=== PATIENT | female | born 1955 | race Caucasian/White ===

== ENCOUNTER 2018-03-18 00:41 | Outpatient (CLI) | payer BC, SELFPAY ==
--- NOTE | 2018-03-18 17:20 | DI.MAMMO_ITS ---
SYMPTOMS/DIAGNOSIS: SCREENING, Z12.31 MAMMOGRAM: Mammograms were interpreted according to the usual protocol including computer analysis with CAD system, tomosynthesis and C view imaging. The breasts are heterogeneously dense. No dominant mass or clumped microcalcification is identified in either breast. Current examination is compared with the previous examinations including March 2017 and there is a question of increased prominence of a focal area of asymmetric density projected in the central and medial portion of the right breast on CC view. Additional mammographic views of the right breast are requested to include CC spot compression view of the right breast. CONCLUSION: Additional mammographic views of the right breast requested as described above. Breast ultrasound may be indicated as well depending on the results of the additional mammographic views. Category 0, breast density category C. MQSA ASSESSMENT OF FINDINGS: Incomplete: Needs additional imaging evaluation. Category 0. Patient will receive a letter notifying them of these results. Bi-RADS category C. The breasts are heterogeneously dense, which may obscure small masses.
== END 2018-03-18 01:01 ==
PROVIDERS: PCP Family Medicine; Visit Provider Nurse Practitioner Family
DX: Z12.31 Encounter for screening mammogram for malignant neoplasm of breast (principal); R92.8 Other abnormal and inconclusive findings on diagnostic imaging of breast
CPT/HCPCS: 77063; 77067

== ENCOUNTER 2018-03-31 00:43 | Outpatient (CLI) | payer BC, SELFPAY ==
--- NOTE | 2018-03-31 14:45 | DI.COMBO_ITS ---
SYMPTOM/DIAGNOSIS: F/U MAMMO. ASYMMETRIC DENSITY RT BREAST ADDITIONAL MAMMOGRAPHIC VIEWS RIGHT BREAST, RT BREAST ULTRASOUND: 03/31 Additional images are interpreted according to the usual protocol including tomosynthesis and 2D imaging. Additional mammographic views of the right breast and right breast ultrasound are interpreted in conjunction. These examinations were obtained to evaluate a questionable area of asymmetric density seen in the right breast on recent examination in the medial portion of the breast on CC view. Additional mammographic views failed to show a discrete mass. Breast ultrasound shows no evidence of a mass or cyst. CONCLUSION: No specific evidence of malignancy at this time. Follow up unilateral right breast mammogram recommended in six months. Category 3, breast density category c. MQSA ASSESSMENT OF FINDINGS: Probably benign. Six month follow-up recommended. Category 3. Patient will receive a letter notifying them of these results. Bi-RADS category C. The breasts are heterogeneously dense, which may obscure small masses.
== END 2018-03-31 01:03 ==
PROVIDERS: PCP Family Medicine; Visit Provider Nurse Practitioner Family
DX: Z12.31 Encounter for screening mammogram for malignant neoplasm of breast (principal); R92.8 Other abnormal and inconclusive findings on diagnostic imaging of breast; N64.89 Other specified disorders of breast
CPT/HCPCS: 76642; 77063; 77067

== ENCOUNTER 2018-06-25 11:05 | Outpatient (CLI) | payer BC, SELFPAY ==
[2018-06-25 13:23] LABS: TSH 3.57 uIU/mL (0.358-3.74)
== END 2018-06-25 11:25 ==
PROVIDERS: PCP Family Medicine; Visit Provider Family Medicine
DX: R94.6 Abnormal results of thyroid function studies (principal)
CPT/HCPCS: 36415; 84443

== ENCOUNTER 2018-10-13 00:55 | Outpatient (CLI) | payer BC, SELFPAY ==
--- NOTE | 2018-10-13 11:21 | DI.MAMMO_ITS ---
SYMPTOM/DIAGNOSIS: 6 MO F/U, F/U ABNL MAMMO, R02.8 RIGHT MAMMOGRAM: Mammograms were interpreted according to the usual protocol including computer analysis with CAD system, tomosynthesis and C view imaging. Today's mammogram was obtained to re-evaluate questionable area of asymmetric density seen in posteromedial portion of the right breast on CC view of previous mammogram of 03/2018. The findings are less prominent on the current examination. No new mass or clumped microcalcification is seen. CONCLUSION: No specific evidence of malignancy at this time. I would suggest that routine screening examinations resume with a bilateral mammogram in 6 months. Category 3. Breast density, Category C. MQSA ASSESSMENT OF FINDINGS: Probably benign. Six month follow-up recommended. Category 3. Patient will receive a letter notifying them of these results. Bi-RADS category C. The breasts are heterogeneously dense, which may obscure small masses.
== END 2018-10-13 01:15 ==
PROVIDERS: PCP Family Medicine; Visit Provider Nurse Practitioner Family
DX: Z12.31 Encounter for screening mammogram for malignant neoplasm of breast (principal); R92.8 Other abnormal and inconclusive findings on diagnostic imaging of breast; N64.59 Other signs and symptoms in breast
CPT/HCPCS: 77061; 77065; G0279

== ENCOUNTER 2019-01-18 22:58 | Emergency (ER) | payer BC, SELFPAY ==
--- NOTE | 2019-01-18 23:04 | ED.GENADUL_ITS ---
Discharge Plan Disposition Patient Disposition: HOME Condition: Stable Discharge Details Chief Complaint: EyeProblem Clinical Impression: Partial retinal detachment Primary Care Provider: Kayce Billingsley ED Provider: Nabila Nielson Home Meds and New Rx's Prescriptions: Continued buspirone 30 mg tablet 15 mg PO BID PRN (Reason: anxiety) Qty: 60 RF: 3 valacyclovir 1 gram tablet 2,000 mg PO DAILY Qty: 90 RF: 4 Linzess 72 mcg capsule 72 mcg PO DAILY Qty: 90 RF: 3 lorazepam [Ativan] 2 mg tablet 2 mg PO HS Qty: 30 RF: 3 duloxetine [Cymbalta] 60 mg capsule,delayed release(DR/EC) 60 mg PO BID Qty: 180 RF: 4 polyethylene glycol 3350 [Miralax] 17 gram powder in packet 17 gm PO .Q48-72H RF: 0 Discharge Instructions Instructions: Retinal Detachment (GEN) Additional Instructions: Your ultrasound and history are suggestive of a retinal detachement. I spoke with Dr. Viera at [facility] who would like for you to be evaluated in their clinic tomorrow. Tomorrow morning please call [phone]. If you develop fevers/chills, pain, redness of the eye or other new/worsening symptoms please seek care urgently once again. Please do not eat anything until evaluated later today. Referrals: Kayce Billingsley MD [Primary Care Provider] - SALOME العراقي [ NON-[facility] STAFF PHYSICIAN] - Medical Decision Making Patient is 63-year-old female presents today with chief complaint of diminished vision in the left eye. She reports at 1400 she had a cloud move across the lateral aspect of her vision towards the medial point. States that since then she has had a wong film over the left eye. No trauma. No pain in the eye. Eyes not injected. Has not had issues with retinal detachment or retinal issues historically. No headache. No neurologic deficit. Patient has had cataract surgery on the side. She did contact her salon stylist who recommended she be evaluated in the emergency department. My exam, patient appears very anxious. Noted to have a mild afferent pupillary reflex delay. Patient's visual acuity on the right is 20/20, patient's visual acuity is 0 on affected eye. Bedside ultrasound was performed by Dr. Locke to evaluate for possible retinal detachment. We are able to appreciate a retinal abnormality with bunching up of the retina concerning for partial retinal detachment. Consult with at [facility] ophthalmology who advised patient should be evaluated tomorrow by retinal specialist. I do not feel the patient needed evaluation tonight. Patient is very anxious and is requesting anxiolytic. She typically takes 2 mg of Ativan prior to bed every night. Prior to my consultation, she was given 1 mg, is now requesting a second milligram. Advised to not take another dose this evening. She is given strict return precautions. She will follow-up with doctors begins tomorrow at [facility] to schedule appointment. He did advise that she remain n.p.o. after midnight, relate this to the patient and discussed that this is an prep for possible surgical intervention. Patients intraocular pressure 12. Information given on retinal detachement. All of her questions and concerns were addressed, she is in agreeemtn with this plan. HPI General Mode of arrival: ambulatory . Date/Time Provider Initiated Documentation: 01/18/19 23:03 . Limitations to Documentation: no limitations . Information obtained by: patient and RN notes reviewed . HPI Narrative: Patient is a 63 year old female presenting today with c/c of left eye diminished vision. Reports that at 1400, while in [place], she had a sudden, atraumatic, loss of vision from outward in. States that she saw long floaters and now is seeing a wong film over her entire left eye field of vision. Denies pain, weakness, trauma, DAVIS, fevers/chills. Has had cataract surgery on this side. Related Data Home Medications Medication Instructions Recorded Confirmed linaclotide 72 mcg capsule 72 mcg PO DAILY #90 cap 04/14/18 12/15/18 lorazepam 2 mg tablet 2 mg PO HS #30 tab-cap 10/13/18 12/15/18 duloxetine 60 mg capsule,delayed 60 mg PO BID #180 tab-cap 10/27/18 12/15/18 release buspirone 30 mg tablet 15 mg PO BID PRN #60 tab 12/15/18 polyethylene glycol 3350 17 gram 17 gm PO .Q48-72H gm 12/15/18 12/15/18 oral powder packet valacyclovir 1 gram tablet 2,000 mg PO DAILY #90 tab 12/15/18 Previous Rx's Medication Instructions Recorded linaclotide 72 mcg capsule 72 mcg PO DAILY #90 cap 04/14/18 lorazepam 2 mg tablet 2 mg PO HS #30 tab-cap 10/13/18 duloxetine 60 mg capsule,delayed 60 mg PO BID #180 tab-cap 10/27/18 release buspirone 30 mg tablet 15 mg PO BID PRN #60 tab 12/15/18 valacyclovir 1 gram tablet 2,000 mg PO DAILY #90 tab 12/15/18 Allergies Allergy/AdvReac Type Severity Reaction Status Date / Time bupropion AdvReac Intermediate MAKES ME Unverified 12/15/18 08:45 CRAZY zolpidem tartrate AdvReac Intermediate HALLUCINATA Unverified 12/15/18 08:45 [From Rosa] TION Review of Systems Constitutional Reports as per HPI, Denies chills, Denies fatigue, Denies fever(s) and Denies headache(s) Eyes Reports as per HPI, Reports change in vision, Denies diplopia, Denies eye discharge, Denies dry eyes, Reports floaters, Denies irritation, Reports loss of vision, Denies eye pain, Denies seeing flashes, Denies photophobia and Denies spots in vision ENT Denies headache(s) Cardiovascular Reports as per HPI, Denies chest pain and Denies lightheadedness Respiratory Denies cough Integumentary/Breasts Reports as per HPI, Denies rash, Denies skin pain and Denies skin swelling Neurologic Denies headache(s), Reports loss of vision and Denies radicular pain Endocrine Denies fatigue [facility] Medical History Anxiety Depression Sleep disorder Surgical History Correction, [place] Open Carpal Tunnel release (~2008) Family History Mother Vulvar cancer Social History Smoking/Tobacco Use Status: Never Drug use: Never Do you feel safe at home: Yes Do you feel safe in your relationship?: Yes Exam Const General: cooperative, healthy appearing, comfortable, no acute distress, well developed and well groomed Nutritional Appearance: average body habitus and well nourished Orientation: alert, awake and oriented x3 HENMT Head: normal to inspection, normocephalic and atraumatic Ears: hearing grossly normal bilaterally and external ears normal General nose exam: external nose normal and nares normal Face and sinus: normal facial exam and face symmetric Mouth: oral mucosae normal, lip normal and moist mucous membranes Eyes General: appearance normal, both eyes and all related structures Alignment and Position: alignment normal Periorbital: periorbital findings normal Eyelids: eyelids normal Conjunctivae: conjunctivae normal Sclera: sclerae normal Cornea: corneas normal Pupils: other (patient is noted to have a slight afferent pupillary defect) EOM: EOM intact bilaterally Resp Effort & Inspection: normal respiratory effort, able to speak in complete sentences and no respiratory distress Auscultation: clear to auscultation bilaterally Cardio Rate: regular rate Rhythm: regular rhythm Heart Sounds: S1 normal and S2 normal Skin General skin exam: no rashes or lesions noted Neuro General: alert, awake and oriented x3 Cranial Nerves: CN's II-XI intact bilaterally Cognition: normal cognition Speech: speech normal Gait: normal gait Psych Appearance: grossly normal and well kempt Mental Status: mental status grossly normal Speech and Movement: speech and movement normal
[2019-01-18 23:48] VITALS: BP 115/76; PULSE 65; RESP 16; TEMP 36.6; O2SAT 100
--- NOTE | 2019-01-19 08:32 | NUR.NOTE ---
Addendum entered by Sara Cristobal 01/19/19 08:32: Spoke with Tiffanie. Original Note: Nursing Note: At the request of [facility] the MD note was faxed for her appt. @ 10:30am today. Sara Cristobal.
== END 2019-01-19 01:10 | disposition home or self-care (01) ==
PROVIDERS: Emergency Provider Physician Assistant; PCP Family Medicine
DX: H33.8 Other retinal detachments (principal)
CPT/HCPCS: 99284

== ENCOUNTER 2019-03-06 09:09 | Outpatient (CLI) | payer BC, SELFPAY ==
[2019-03-06 18:50] LABS: Hemoglobin A1C 5.6 % (4.5-6.2)
== END 2019-03-06 09:29 ==
LOC: LOS 09:09 → LBO 13:17
PROVIDERS: PCP Family Medicine; Visit Provider Nurse Practitioner
DX: Z13.1 Encounter for screening for diabetes mellitus (principal)
CPT/HCPCS: 36415; 83036

== ENCOUNTER 2019-03-12 15:18 | Outpatient (REF) | payer BC, SELFPAY ==
--- NOTE | 2019-03-12 13:00 | PAPFT_PTH ---
PATIENT: Elisha Celestin LOC: [facility] U#:[id number] AGE/SX: 64/F ROOM: RE03/12/[address]: JEFFRY Thompson : 1955 BED: DIS: 03/12/2019 SPEC #: [id number] RECD: 03/12/19 17:50 STATUS: THIEN REMonica #: [id number] RAMON: 03/12/19 13:[address]: Maria R Carter DEPT: [facility] Cytology RECD BY: Mercedes Frederick ENTERED: 03/12/19 17:51 SP TYPE: PAPFT VIANNEY DR: Kayce Billingsley MD Tissues: 1 - CX/ENDOCX FOR PAP SMEARS Procedures: PAP THIN PREP/[facility] Screening HPV DNA PROBE Comments: [id number]
== END 2019-03-12 15:38 ==
LOC: LBN 15:18
PROVIDERS: PCP Family Medicine; Visit Provider Nurse Practitioner Family
DX: Z12.4 Encounter for screening for malignant neoplasm of cervix (principal); Z11.51 Encounter for screening for human papillomavirus (HPV)
CPT/HCPCS: 88142; 87624

== ENCOUNTER 2019-04-06 01:04 | Outpatient (CLI) | payer BC, SELFPAY ==
--- NOTE | 2019-04-06 17:30 | DI.MAMMO_ITS ---
EXAM: MG MAMMO SCREENING CLINICAL HISTORY: screening. TECHNIQUE: Mammograms were interpreted according to the usual protocol including computer analysis w ith CAD system, tomosynthesis and C-view imaging. COMPARISON: [id number] FINDINGS: The breasts are heterogeneously dense, which may obscure small masses, breast density category C. Th ere are no suspicious masses or microcalcifications. There are no significant changes in comparison w ith the prior images. IMPRESSION: BI-RADS Cat 1 - Negative Breast Density - Category C - Heterogeneously dense
== END 2019-04-06 01:24 ==
PROVIDERS: PCP Family Medicine; Visit Provider Nurse Practitioner Family
DX: Z12.31 Encounter for screening mammogram for malignant neoplasm of breast (principal)
CPT/HCPCS: 77063; 77067

== ENCOUNTER 2019-04-16 00:19 | Outpatient (CLI) | payer BC, SELFPAY ==
--- NOTE | 2019-04-16 12:49 | DI.CT_ITS ---
EXAM: CT HEAD WO CLINICAL HISTORY: dizziness R42 DIZZINESS AND GIDDINESS TECHNIQUE: Noncontrast COMPARISON: No exams were available for comparison FINDINGS: No intracranial hemorrhage, mass or infarct is seen. Ventricles are normal in size. No white matte r changes are visible. There is no evidence of skull fracture or sinus opacification. IMPRESSION: Negative head CT.
== END 2019-04-16 00:39 ==
PROVIDERS: PCP Family Medicine; Visit Provider Nurse Practitioner
DX: R42 Dizziness and giddiness (principal)
CPT/HCPCS: 70450

== ENCOUNTER 2020-01-11 10:48 | Outpatient (CLI) | payer BC, SELFPAY ==
[2020-01-16 01:50] LABS: SARS-CoV-2 RNA Undetected (Undetected); SARS-CoV-2 Specimen Source Nasopharynx
== END 2020-01-11 11:08 ==
PROVIDERS: PCP Family Medicine; Visit Provider Family Medicine
DX: Z11.59 Encounter for screening for other viral diseases (principal)
CPT/HCPCS: U0003

== ENCOUNTER 2020-01-20 09:05 | Outpatient (REF) | payer BC, SELFPAY ==
[2020-01-22 11:24] LABS: Campylobacter PCR Negative (Negative); Salmonella PCR Negative (Negative); Shiga Toxin PCR Negative (Negative); Shigella/Enteroinvasive Ecoli Negative (Negative)
== END 2020-01-20 09:25 ==
LOC: LBN 09:05
PROVIDERS: PCP Family Medicine; Visit Provider Family Medicine
DX: R19.7 Diarrhea, unspecified (principal)
CPT/HCPCS: 87505

== ENCOUNTER 2020-01-22 02:29 | Outpatient (CLI) | payer BC, SELFPAY ==
[2020-01-22 11:22] LABS: Abs Immature Grans 0.01 k/cumm (0.0-0.09); Absolute Basophil Count 0.09 k/cumm (0.0-0.2); Absolute Eosinophil Count 0.22 k/cumm (0.0-0.7); Absolute Lymphocyte Count 1.85 k/cumm (1.2-3.4); Absolute Monocyte Count 0.83 k/cumm (0.11-0.7); Absolute Neutrophil Count 5.25 k/cumm (1.2-6.7); Basophils % 1.1; Eosinophils % 2.7; HCT 39.2 % (36.0-46.0); HGB 13.1 g/dL (12.0-15.5); Immature Grans % 0.1 %; Lymphocytes % 22.4; Mean Corp. HGB Concentration 33.4 g/dL (32.0-36.0); Mean Corpuscular Hemoglobin 31.9 pg (27.0-33.0); Mean Corpuscular Volume 95.4 fL (80-95); Mean Platelet Volume 8.5 fL (8.0-11.0); Monocytes % 10.1; Neutrophils % 63.6; Platelet Count 503 x1000/uL (130-400); RBC 4.11 m/cumm (4.00-5.20); RBC Distribution Width 12.9 % (11.7-14.6); White Blood Cell Count 8.25 k/cumm (4.4-10.8)
[2020-01-22 12:05] LABS: Iron 101 ug/dL (50-170); Total Iron Binding Capacity 293 ug/dL (250-450); Transferrin Sat 34 % (15-50)
[2020-01-22 12:16] LABS: ALT 161 U/L (14-59); AST 69 U/L (15-37); Alkaline Phosphatase 92 U/L (46-116); Anion Gap 7.4 mmol/L (3-11); BUN 11 mg/dL (7-18); Bilirubin, Total 0.8 mg/dL (0.2-1.0); CO2 29.6 mmol/L (21.0-32.0); CREATININE 0.92 mg/dL (0.55-1.02); Chloride 105 mmol/L (98-107); Ferritin 43 ng/mL (8-252); Glucose 75 mg/dL (74-106); Potassium 4.7 mmol/L (3.5-5.1); Sodium 142 mmol/L (136-145); TSH 3.58 uIU/mL (0.36-3.74); Total Protein 6.6 g/dL (6.4-8.2)
[2020-01-25 11:00] LABS: Hepatitis A Antibody IgM Negative (Negative); Hepatitis B Core Antibody Negative (Negative); Hepatitis B surface Ag Negative (Negative); Hepatitis C Ab w Rflx HCV PCR Negative (Negative)
== END 2020-01-22 02:49 ==
PROVIDERS: PCP Family Medicine; Visit Provider Family Medicine
DX: Z86.2 Personal history of diseases of the blood and blood-forming organs and certain disorders involving the immune mechanism (principal); R53.83 Other fatigue; R19.7 Diarrhea, unspecified
CPT/HCPCS: 36415; 80053; 86704; 86709; 86803; 87340; 82728; 83540; 83550; 84443; 85025

== ENCOUNTER 2020-02-01 02:00 | Outpatient (CLI) | payer BC, SELFPAY ==
[2020-02-01 09:16] LABS: Abs Immature Grans 0.02 10^3/uL (0.0-0.06); Absolute Basophil Count 0.09 10^3/uL (0.0-0.2); Absolute Eosinophil Count 0.18 10^3/uL (0.0-0.7); Absolute Lymphocyte Count 2.25 10^3/uL (1.2-3.4); Absolute Monocyte Count 0.76 10^3/uL (0.1-0.8); Absolute Neutrophil Count 4.03 10^3/uL (1.2-6.7); Basophils % 1.2; Eosinophils % 2.5; HCT 42.5 % (36.0-46.0); Immature Grans % 0.3; Lymphocytes % 30.7; MCH 32.3 pg (27.0-33.0); MCHC 32.9 % (32.0-36.0); MCV 98.2 fL (80-95); MPV 8.7 fL (8.0-11.0); Monocytes % 10.4; Neutrophils % 54.9; Platelet Count 419 10^3/uL (130-400); RBC 4.33 10^6/uL (3.93-5.22); RDW 12.1 % (11.7-14.6); RDW-SD 44.3 fL; WBC 7.33 10^3/uL (4.4-10.8)
[2020-02-01 10:12] LABS: ALT 61 U/L (14-59); AST 26 U/L (15-37); Albumin 4.1 g/dL (3.4-5.0); Alkaline Phosphatase 109 U/L (46-116); Bilirubin, Direct 0.25 mg/dL (0.00-0.20); Bilirubin, Total 0.9 mg/dL (0.2-1.0); Total Protein 6.8 g/dL (6.4-8.2)
[2020-02-02 11:08] LABS: Lyme Ab w Rflx to Lyme Confirm Negative (Negative)
[2020-02-03 01:26] LABS: Anaplasma phagocytophilum Negative (Negative); B. miyamotoi PCR Negative (Negative); Babesia divergens/MO-1 Negative (Negative); Babesia duncani Negative (Negative); Babesia microti Negative (Negative); Ehrlichia chaffeensis Negative (Negative); Ehrlichia ewingii/canis Negative (Negative); Ehrlichia muris eauclairensis Negative (Negative)
== END 2020-02-01 02:20 ==
PROVIDERS: PCP Family Medicine; Visit Provider Family Medicine
DX: R74.0 Nonspecific elevation of levels of transaminase and lactic acid dehydrogenase [LDH] (principal); R68.83 Chills (without fever)
CPT/HCPCS: 36415; 80076; 87798; 85025; 86618

== ENCOUNTER 2021-08-08 09:42 | Outpatient (REF) | payer BC, MEDICARE, SELFPAY | END 2021-08-08 09:43 | disposition home or self-care (01) | LOC: LBN 09:42 | PROVIDERS: Visit Provider Family Medicine | DX: R30.9 Painful micturition, unspecified (principal) | CPT/HCPCS: 87086 ==

== ENCOUNTER → 2021-08-09 13:54 | Outpatient (BNVA) | payer MEDICARE, SELFPAY | PROVIDERS: Visit Provider Nurse Practitioner Gerontology | DX: N39.0 Urinary tract infection, site not specified (principal); N32.89 Other specified disorders of bladder; R30.0 Dysuria | CPT/HCPCS: 81003; 99215 ==

== ENCOUNTER → 2021-08-14 12:50 | Outpatient (BNVA) | payer MEDICARE, SELFPAY | PROVIDERS: Visit Provider Nurse Practitioner Gerontology | DX: A60.00 Herpesviral infection of urogenital system, unspecified (principal); N30.10 Interstitial cystitis (chronic) without hematuria | CPT/HCPCS: 99214 ==